=== PATIENT | female | born 1975 | race Caucasian/White ===

== ENCOUNTER 2016-12-03 11:37 | Outpatient (CLI) | payer OTHER | END 2016-12-03 11:38 | disposition home or self-care (01) | DX: M54.2 Cervicalgia (principal); M79.7 Fibromyalgia; M54.6 Pain in thoracic spine; M54.5 Low back pain ==

== ENCOUNTER 2017-07-26 13:58 | Outpatient (CLI) | payer OTHER | END 2017-07-26 13:59 | disposition home or self-care (01) | LOC: DI 13:58 | PROVIDERS: ATTEND Physician Assistant Medical | DX: I34.1 Nonrheumatic mitral (valve) prolapse (principal) | CPT/HCPCS: 93306 ==

== ENCOUNTER 2017-08-07 12:01 | Outpatient (CLI) | payer OTHER ==
--- NOTE | 2017-08-07 13:50 | Ultrasound Report ---
EXAM: ULTRASOUND OF THE LEFT ARM: 08/07/2017 CLINICAL INDICATION: Palpable abnormalities left elbow and left forearm. TECHNIQUE: Real-time scanning was performed with development representative static images obtained. FINDINGS: Ultrasound of the palpable abnormalities identified by the patient was performed. At the level of the elbow, there is an 1.8 x 1.6 x 0.7 cm lipoma. In the left forearm, there is a 2.2 x 2.1 x 0.6 cm lipoma, and an 1.9 x 1.4 x 0.7 cm lipoma. No sonographically suspicious findings are appreciated. IMPRESSION: MULTIPLE LIPOMAS, CORRELATING WITH THE PALPABLE ABNORMALITIES. MD HARSH Allison/BIANCA TD: 08/07/2017 13:50 MTDD
== END 2017-08-07 12:02 | disposition home or self-care (01) ==
LOC: DI 12:01
PROVIDERS: ATTEND Physician Assistant Medical
DX: D17.22 Benign lipomatous neoplasm of skin and subcutaneous tissue of left arm (principal)
CPT/HCPCS: 76882

== ENCOUNTER 2017-10-07 11:25 | Outpatient (CLI) | payer OTHER ==
[2017-10-07 18:57] LABS: BASOPHILS % (AUTO) 0.8 %; EOSINOPHILS # (AUTO) 0.1 10^3/uL (0.0-0.7); EOSINOPHILS % (AUTO) 1.7 %; HGB - HEMOGLOBIN 13.2 g/dL (12.0-16.0); LYMPHOCYTES # (AUTO) 1.6 10^3/uL (1.5-3.5); LYMPHOCYTES % (AUTO) 28.4 %; MEAN CORPUSCULAR HEMOGLOBIN 28.7 pg (27.0-31.0); MEAN CORPUSCULAR HGB CONC 32.9 g/dL (32.0-36.0); MEAN CORPUSCULAR VOLUME 87.1 fL (81.0-99.0); MEAN PLATELET VOLUME 9.3 fL (7.9-10.8); MONOCYTES # (AUTO) 0.3 10^3/uL (0.0-1.0); MONOCYTES % (AUTO) 5.5 %; NEUTROPHILS # (AUTO) 3.6 10^3/uL (1.5-6.6); NEUTROPHILS % (AUTO) 63.6 %; PLT - PLATELET COUNT 231 10^3/uL (130-450); RED BLOOD COUNT 4.59 10^6/uL (4.20-5.40); RED CELL DISTRIBUTION WIDTH 13.7 % (12.0-15.0); WHITE BLOOD COUNT 5.6 x10^3/uL (4.8-10.8)
[2017-10-07 19:23] LABS: THYROID STIMULATING HORMONE 6.86 uIU/mL (0.34-5.60)
[2017-10-07 19:32] LABS: ALBUMIN 4.3 g/dL (3.2-5.5); ALBUMIN/GLOBULIN RATIO 1.3 (1.0-2.2); ALKALINE PHOSPHATASE 53 IU/L (42-121); ALT ALANINE AMINOTRANSFERASE 35 IU/L (10-60); AMYLASE 27 U/L (28-100); AST ASPARTATE AMINOTRANSFERASE 24 IU/L (10-42); BILIRUBIN,TOTAL 0.7 mg/dL (0.2-1.0); BUN - BLOOD UREA NITROGEN 10 mg/dL (6-20); CARBON DIOXIDE - CO2 27 mmol/L (21-32); CHLORIDE 100 mmol/L (101-111); CHOL/HDL RATIO 4.3 (<4.4); CHOLESTEROL 205 mg/dL; CREATININE 0.8 mg/dL (0.4-1.0); GFR - MDRD 78 (>89); GLUCOSE 84 mg/dL (70-100); HDL CHOLESTEROL 48 mg/dL; LDL CHOLESTEROL,CALCULATED 144 mg/dL; SODIUM 136 mmol/L (135-145); TOTAL PROTEIN 7.5 g/dL (6.7-8.2); VLDL CHOLESTEROL 13 mg/dL
[2017-10-07 21:13] LABS: LIPASE < 10 U/L (22-51)
[2017-10-07 21:49] LABS: FREE T4 (FREE THYROXINE) 0.85 ng/dL (0.58-1.64)
== END 2017-10-07 11:26 | disposition home or self-care (01) ==
LOC: LAB.WCP 11:25
PROVIDERS: ATTEND Physician Assistant Medical
DX: Z00.00 Encounter for general adult medical examination without abnormal findings (principal); R10.9 Unspecified abdominal pain
CPT/HCPCS: 36415; 80053; 80061; 82150; 83690; 83721; 84439; 84443; 85025

== ENCOUNTER 2017-10-30 11:40 | Emergency (ER) | payer OTHER ==
[2017-10-30 12:49] LABS: BASOPHILS # (AUTO) 0.1 10^3/uL (0.0-0.1); EOSINOPHILS # (AUTO) 0.1 10^3/uL (0.0-0.7); EOSINOPHILS % (AUTO) 1.1 %; HGB - HEMOGLOBIN 13.9 g/dL (12.0-16.0); LYMPHOCYTES # (AUTO) 1.7 10^3/uL (1.5-3.5); LYMPHOCYTES % (AUTO) 27.3 %; MEAN CORPUSCULAR HEMOGLOBIN 29.2 pg (27.0-31.0); MEAN CORPUSCULAR VOLUME 86.1 fL (81.0-99.0); MEAN PLATELET VOLUME 8.6 fL (7.9-10.8); MONOCYTES # (AUTO) 0.4 10^3/uL (0.0-1.0); MONOCYTES % (AUTO) 6.7 %; NEUTROPHILS # (AUTO) 3.9 10^3/uL (1.5-6.6); NEUTROPHILS % (AUTO) 63.9 %; PLT - PLATELET COUNT 256 10^3/uL (130-450); RED BLOOD COUNT 4.75 10^6/uL (4.20-5.40); RED CELL DISTRIBUTION WIDTH 13.5 % (12.0-15.0); WHITE BLOOD COUNT 6.1 x10^3/uL (4.8-10.8)
[2017-10-30 13:01] LABS: ALBUMIN 4.5 g/dL (3.2-5.5); ALBUMIN/GLOBULIN RATIO 1.2 (1.0-2.2); BILIRUBIN,TOTAL 0.6 mg/dL (0.2-1.0); CALCIUM 9.4 mg/dL (8.5-10.3); CREATININE 0.8 mg/dL (0.4-1.0); TOTAL PROTEIN 8.3 g/dL (6.7-8.2)
[2017-10-30 13:12] LABS: BILIRUBIN,URINE NEGATIVE (NEGATIVE); CLARITY,URINE CLEAR (CLEAR); GLUCOSE, URINE (UA) NEGATIVE (NEGATIVE); KETONES,URINE (UA) TRACE mg/dL (NEGATIVE); LEUKOCYTE ESTERASE, URINE NEGATIVE (NEGATIVE); NITRITE,URINE NEGATIVE (NEGATIVE); OCCULT BLOOD,URINE NEGATIVE (NEGATIVE); PROTEIN,URINE NEGATIVE (NEGATIVE); UROBILINOGEN,URINE 0.2 (NORMAL) E.U./dL (NORMAL)
--- NOTE | 2017-10-30 13:43 | ED Physician Documentation ---
PD HPI ABD PAIN - Stated complaint Stated Complaint: FEMALE /BLEEDING - Chief complaint Chief Complaint: Abd Pain - History obtained from History obtained from: Patient - History of Present Illness Timing - onset: Other (She had chronic constipation and had a colonoscopy in her teenage years and also had one again for some stomach upsets about 4 years ago which did show diverticula. Last week she had painless rectal bleeding which then stopped for a few days and then started again. It is with the bowel movements. She has not constipated. She does have a little bit of stomach upset. No vomiting.) Review of Systems Constitutional: denies: Fever, Chills, Fatigue, Weight Loss, Sweats GI: reports: Abdominal Pain. 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 09/29/13 08/22/14 Amitriptyline [Elavil] 25 mg PO BID 11/06/13 08/22/14 Fluoxetine HCl [Prozac] 20 mg PO 11/06/13 08/22/14 traMADol [Ultram] 100 mg PO ONCE 11/06/13 08/22/14 traMADol [Ultram] 50 - 100 mg PO Q6H PRN #20 tablet 08/23/14 - Allergies Allergies/Adverse Reactions: Allergies Allergy/AdvReac Type Severity Reaction Status Date / Time bee stings Allergy Respiratory Uncoded 08/22/14 23:18 - Social History Does the pt smoke?: No Smoking Status: Never smoker Does the pt drink ETOH?: No Does the pt have substance abuse?: No - Immunizations Immunizations are current?: Yes - POLST Patient has POLST: No PD ED PE NORMAL - Vitals Vital signs reviewed: Yes - General General: Alert and oriented X 3, No acute distress - Abdomen Abdomen: Normal bowel sounds, Soft, Non tender - Rectal Rectal: Other (With Cheryl LANDEROS present in chaperoning, brown guaiac negative stool, QC passed.) - Derm Derm: Normal color, Warm and dry - Neuro Neuro: Alert and oriented X 3, Normal speech Results - Vitals Vitals: Vital Signs - 24 hr 10/30/17 10/30/17 10/30/17 11:45 13:50 13:51 Temperature 36.5 C 36.4 C L Heart Rate 82 82 Respiratory 18 14 Rate Blood Pressure 110/70 108/67 O2 Saturation 100 100 Oxygen O2 Source Room air - Labs Labs: Laboratory Tests 10/30/17 10/30/17 10/30/17 12:44 12:44 12:58 WBC 6.1 RBC 4.75 Hgb 13.9 Hct 40.9 MCV 86.1 MCH 29.2 MCHC 34.0 RDW 13.5 Plt Count 256 MPV 8.6 Neut # 3.9 Lymph # 1.7 Kenton # 0.4 Eos # 0.1 Baso # 0.1 Absolute Nucleated RBC 0.00 Nucleated RBC % 0.0 Sodium 137 Potassium 3.2 L Chloride 100 L Carbon Dioxide 27 Anion Gap 10.0 BUN 14 Creatinine 0.8 Estimated GFR (MDRD) 78 L Glucose 91 Calcium 9.4 Total Bilirubin 0.6 AST 24 ALT 30 Alkaline Phosphatase 54 Total Protein 8.3 H Albumin 4.5 Globulin 3.8 Albumin/Globulin Ratio 1.2 Lipase 16 L Urine Color YELLOW Urine Clarity CLEAR Urine pH 6.0 Ur Specific Drummond 1.025 Urine Protein NEGATIVE Urine Glucose (UA) NEGATIVE Urine Ketones TRACE Urine Occult Blood NEGATIVE Urine Nitrite NEGATIVE Urine Bilirubin NEGATIVE Urine Urobilinogen 0.2 (NORMAL) Ur Leukocyte Esterase NEGATIVE Ur Microscopic Review NOT INDICATED Urine Culture Comments NOT INDICATED PD MEDICAL DECISION MAKING - ED course ED course: Intermittent bleeding from the colon it sounds like. That said she is guaiac negative here in her H&H is reassuring. Results from prior colonoscopy reviewed , could be a diverticular bleed. Follow-up for repeat colonoscopy was advised. Departure - Departure Disposition: 01 Home, Self Care Clinical Impression: Lower GI bleed Condition: Good Record reviewed to determine appropriate education?: Yes Instructions: ED Hematochezia Stable Comments: Your blood counts are normal and as of this moment she do not have any blood in your stool. Follow-up with Dr. Rivera and discuss repeat colonoscopy referral. Return if worse. Discharge Date/Time: 10/30/17 13:51
[2017-10-30 13:51] VITALS: BP 108/67
== END 2017-10-30 13:51 | disposition home or self-care (01) ==
LOC: ED 11:40
DX: K62.5 Hemorrhage of anus and rectum (principal); Z86.010 Personal history of colon polyps; M79.7 Fibromyalgia; F32.9 Major depressive disorder, single episode, unspecified
CPT/HCPCS: 36415; 80053; 81001; 81003; 83690; 85025; 87086; 99283; 99284

== ENCOUNTER 2017-10-31 13:46 | Outpatient (CLI) | payer OTHER ==
--- NOTE | 2017-10-31 18:24 | MRI Report ---
EXAM: MRI THORACIC SPINE WITHOUT CONTRAST EXAM DATE: 10/31/2017 02:57 PM. CLINICAL HISTORY: Back pain, thoracic region, chronic. COMPARISONS: Thoracic spine radiographs 12/03/2016. TECHNIQUE: Multiplanar, multisequence T1-weighted and fluid-sensitive sequences of the thoracic spine from C7 to L1 without contrast. Other: None. FINDINGS: No suspicious marrow replacement is present in the thoracic vertebral bodies. No abnormal T2 signal is seen in the thoracic spinal cord. Vertebral body height is preserved throughout the thoracic spine. No significant spondylolisthesis is seen in the thoracic spine. Minimal posterior disk protrusions are present from T4-T10. Anterior osteophyte formation is seen sca ttered throughout the mid and lower thoracic spine. This is seen on the comparison radiographs No central canal or foraminal stenosis is present in the thoracic spine. Minimal posterior disk protrusions are seen from C5-T1. No epidural fluid collection is present. There is a complex lesion along the posterior aspect of the left thyroid lobe which measures up to 1. 7 cm in size. A portion of this is T1 hyperintense and a portion is T2 hyperintense. IMPRESSION: 1. Minimal posterior disk protrusions are seen in the mid and lower thoracic spine. 2. No central canal or foraminal stenosis is present in the thoracic spine. 3. No abnormal signal is seen in the thoracic spinal cord. 4. Minimal posterior disk protrusions are seen in the lower cervical spine. 5. There is a complex mass along the posterior aspect of the left thyroid lobe. Thyroid ultrasound wo uld be of value to further assess this finding. MRI cannot distinguish benign from malignant thyroid disease. A parathyroid lesion is in the differential as well. [facility] Referring Provider Line: [phone] SITE ID: [id number]
== END 2017-10-31 13:47 | disposition home or self-care (01) ==
LOC: DI 13:46
PROVIDERS: ATTEND Family Medicine
DX: M51.24 Other intervertebral disc displacement, thoracic region (principal); M50.23 Other cervical disc displacement, cervicothoracic region; E07.9 Disorder of thyroid, unspecified; E21.5 Disorder of parathyroid gland, unspecified
CPT/HCPCS: 72146

== ENCOUNTER 2017-11-16 12:55 | Outpatient (CLI) | payer OTHER ==
--- NOTE | 2017-11-16 20:53 | Ultrasound Report ---
EXAM: THYROID ULTRASOUND EXAM DATE: 11/16/2017 02:40 PM. CLINICAL HISTORY: Thyroid nodule COMPARISON: None. TECHNIQUE: Real time sonographic imaging of the thyroid was performed by the spice cleaner. Multiple re presentative static images were saved for review. FINDINGS: THYROID GLAND: Right Lobe: Surgically absent. No soft tissue nodular mass in the resection bed. Left Lobe: 5.5 x 2.1 x 2.2 cm, volume 13.2 cc. Normal background echotexture. Left Lobe Nodules: 1. Partially cystic nodule with no suspicious features, midportion, 2.0 x 1.6 x 1.8 cm, previously 1. 8 x 1.3 x 1.3 cm. BETH very low suspicion sonographic pattern. 2. Partially cystic with eccentric solid area, inferior pole, 0.8 x 0.6 x 0.7 cm, previously 0.6 x 0. 4 x 0.4 cm. BETH low suspicion sonographic pattern. Isthmus: Surgically absent. LYMPH NODES: No adenopathy demonstrated in the central or lateral compartment. OTHER: None. IMPRESSION: 1. Post-right thyroidectomy. 2. Slight interval increase in size of two left thyroid nodules. The larger 2.0 cm nodule borderline meets criteria for tissue sampling with FNA. Management recommendations are based on 2015 [place] [employer] Management Guidelines for A dult Patients with Thyroid Nodules and Differentiated Thyroid Cancer. [facility] Referring Provider Line: [phone] SITE ID: [id number]
== END 2017-11-16 12:56 | disposition home or self-care (01) ==
LOC: DI 12:55
PROVIDERS: ATTEND Family Medicine
DX: E04.2 Nontoxic multinodular goiter (principal); E89.0 Postprocedural hypothyroidism
CPT/HCPCS: 76536

== ENCOUNTER 2017-12-23 09:16 | Outpatient (CLI) | payer OTHER ==
[2017-12-23 10:55] VITALS: BP 117/75
[2017-12-23] MEDS ORDERED: BUFFERED LIDOCAINE 10 ML SYRINGE IU ONE (11:10)
--- NOTE | 2017-12-23 12:21 | Ultrasound Report ---
ULTRASOUND-GUIDED FINE NEEDLE ASPIRATION OF LEFT THYROID NODULE: 12/23/2017 CLINICAL INDICATION: Left thyroid nodule. TECHNIQUE/FINDINGS: Following obtaining informed consent, the patient's left neck was prepped and draped in the usual sterile fashion. The skin and soft tissues were anesthetized with lidocaine. Under ultrasound guidance, four 22-gauge fine needle aspirations were performed. Needle washings were submitted to Pathology. The patient tolerated the procedure well. No immediate complications. IMPRESSION: FINE NEEDLE ASPIRATION OF LEFT THYROID NODULE. PATHOLOGY REPORT PENDING. TD: 12/23/2017 12:20
== END 2017-12-23 09:17 | disposition home or self-care (01) ==
LOC: DI 09:16
PROVIDERS: ATTEND Surgery
DX: E04.1 Nontoxic single thyroid nodule (principal); M79.7 Fibromyalgia; I49.9 Cardiac arrhythmia, unspecified; I10 Essential (primary) hypertension
CPT/HCPCS: 10022; 76942; 88305; 88373

== ENCOUNTER 2018-03-13 15:09 | Outpatient (CLI) | payer OTHER ==
[2018-03-13 19:03] LABS: BASOPHILS % (AUTO) 0.6 %; EOSINOPHILS # (AUTO) 0.1 10^3/uL (0.0-0.7); EOSINOPHILS % (AUTO) 1.3 %; HGB - HEMOGLOBIN 12.8 g/dL (12.0-16.0); LYMPHOCYTES # (AUTO) 1.8 10^3/uL (1.5-3.5); LYMPHOCYTES % (AUTO) 25.7 %; MEAN CORPUSCULAR HEMOGLOBIN 28.6 pg (27.0-31.0); MEAN CORPUSCULAR HGB CONC 33.5 g/dL (32.0-36.0); MEAN CORPUSCULAR VOLUME 85.4 fL (81.0-99.0); MEAN PLATELET VOLUME 9.3 fL (7.9-10.8); MONOCYTES # (AUTO) 0.4 10^3/uL (0.0-1.0); MONOCYTES % (AUTO) 5.4 %; NEUTROPHILS # (AUTO) 4.6 10^3/uL (1.5-6.6); PLT - PLATELET COUNT 256 10^3/uL (130-450); RED BLOOD COUNT 4.47 10^6/uL (4.20-5.40); RED CELL DISTRIBUTION WIDTH 14.1 % (12.0-15.0); WHITE BLOOD COUNT 6.9 x10^3/uL (4.8-10.8)
[2018-03-13 19:19] LABS: ALBUMIN 3.8 g/dL (3.2-5.5); ALBUMIN/GLOBULIN RATIO 1.1 (1.0-2.2); BILIRUBIN,TOTAL 0.6 mg/dL (0.2-1.0); CALCIUM 8.8 mg/dL (8.5-10.3); CREATININE 0.7 mg/dL (0.4-1.0); TOTAL PROTEIN 7.3 g/dL (6.7-8.2)
== END 2018-03-13 15:10 | disposition home or self-care (01) ==
LOC: LAB.WCP 15:09
PROVIDERS: ATTEND Family Medicine
DX: K62.5 Hemorrhage of anus and rectum (principal)
CPT/HCPCS: 36415; 80053; 85025

== ENCOUNTER 2018-03-24 14:40 | Outpatient (CLI) | payer OTHER ==
--- NOTE | 2018-03-25 22:09 | MRI Report ---
Procedure Date: 03/24/2018 Accession Number: [id number] / [id number] Procedure: MRI - Lumbar Spine W/O CPT Code: FULL RESULT: EXAM: MRI LUMBAR SPINE WITHOUT CONTRAST. EXAM DATE: 03/24/2018 03:12 PM. CLINICAL HISTORY: Low back pain, acute. COMPARISON: None. TECHNIQUE: Multiplanar, multisequence T1-weighted and fluid-sensitive sequences of the lumbar spine from T12 to S1 without contrast. Other: None. FINDINGS: There is mild straightening of the normal lumbar lordosis. The conus terminates at T12-L1 and is normal. There is mild desiccation of the disk spaces at L4-L5 and L5-S1. There is no significant atrophy of the paraspinal musculature or the psoas musculature. The abdominal aorta is of normal caliber. The kidneys are without evidence of hydronephrosis. There is fluid intensity within the superficial space of the lower back. L1-L2: There is a minimal disk bulge abutting the sac producing a minimal central canal stenosis. The remainder of the level is normal. L2-L3: There is no significant disk bulge, central or foraminal stenosis. The facets are normal. L3-L4: There is no significant disk bulge, central or foraminal stenosis. The facets are normal. L4-L5: There is no significant disk bulge, central or foraminal stenosis. The facets are normal. L5-S1: There is a minimal disk osteophyte complex without significant central canal stenosis. The remainder of the level is normal. There are small perineural cysts posterior to S2 and S3. IMPRESSION: 1. There is a minimal disk osteophyte complex at L5-S1 but without significant central canal stenosis. 2. There is a minimal disk bulge at L1-L2 producing a minimal central canal stenosis. Comment: The following findings are so common in adults without low back pain that while we report their presence, they must be interpreted with caution and in the context of the clinical situation. (Reference Chuyk et al, Spine 2001) Prevalence of findings in patients without low back pain: Disk degeneration (any evidence): 92% Disk desiccation/T2 signal loss: 83% Disk height loss: 56% Disk bulge: 64% Disk protrusion: 32% Annular tear/high intensity zone: 38% [facility]
== END 2018-03-24 14:41 | disposition home or self-care (01) ==
LOC: DI 14:40
PROVIDERS: ATTEND Family Medicine
DX: M54.5 Low back pain (principal)
CPT/HCPCS: 72148

== ENCOUNTER 2018-08-02 16:11 | Emergency (ER) | payer OTHER ==
--- NOTE | 2018-08-02 16:37 | ED Physician Documentation ---
PD HPI LOWER EXT INJURY - Stated complaint Stated Complaint: LT ANKLE INJ - Chief complaint Chief Complaint: Trauma Ext - History obtained from History obtained from: Patient, Family - History of Present Illness PD HPI LOW EXT INJURY LOCATION: Left, Ankle Type of injury: Twist Where injury occurred: Other (store) Timing - onset: Today Timing - duration: Minutes Timing - details: Abrupt onset, Still present Improved by: Rest, Ice, Immobilization Worsened by: Moving, Palpating Associated symptoms: Swelling. No: Weakness, Numbness, Tingling Contributing factors: No: Anticoagulated Similar symptoms before: Diagnosis (ankle sprain) Recently seen: Not recently seen - Additional information Additional information: 42-year-old female was walking into [employer] with her cart she missed judged the curb and twisted her ankle stepping down. She has swelling and tenderness to the left ankle laterally and into the arch. Review of Systems Constitutional: denies: Fever Eyes: denies: Decreased vision Respiratory: denies: Cough GI: denies: Vomiting Skin: denies: Rash Musculoskeletal: reports: Extremity pain, Joint pain, Extremity swelling, Joint swelling, Pain with weight bearing. 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 09/29/13 08/22/14 Amitriptyline [Elavil] 25 mg PO BID 11/06/13 08/22/14 traMADol [Ultram] 100 mg PO ONCE 11/06/13 08/22/14 DULoxetine [Cymbalta] 08/02/18 08/02/18 - Allergies Allergies/Adverse Reactions: Allergies Allergy/AdvReac Type Severity Reaction Status Date / Time bee stings Allergy Respiratory Uncoded 08/02/18 16:22 - Social History Does the pt smoke?: No Smoking Status: Never smoker Does the pt drink ETOH?: No Does the pt have substance abuse?: No - Immunizations Immunizations are current?: Yes - POLST Patient has POLST: No PD ED PE NORMAL - Vitals Vital signs reviewed: Yes (tachy and hypertensive ) - General General: Alert and oriented X 3, No acute distress, Well developed/nourished - HEENT HEENT: Atraumatic, PERRL, EOMI - Respiratory Respiratory: No respiratory distress - Derm Derm: Normal color, Warm and dry, No rash - Extremities Extremities: Other (There is point tenderness and swelling to the talofibular ligament and no tenderness to the proximal 5th. Distal n/v is intact. 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, No motor deficit, No sensory deficit, Normal speech Eye Opening: Spontaneous Motor: Obeys Commands Verbal: Oriented GCS Score: 15 - Psych Psych: Normal mood, Normal affect Results - Vitals Vitals: Vital Signs - 24 hr 08/02/18 16:21 Temperature 36.9 C Heart Rate 118 H Respiratory 17 Rate Blood Pressure 134/94 H O2 Saturation 98 Oxygen O2 Source Room air - Rads (name of study) ankle L Radiology: Prelim report reviewed (Impression: Normal ankle radiography.), EMP read indepedently, See rad report Procedures - Splint (location) left ankle Splint applied by: Physician Type of splint: Ankle airsplint Other: Patient tolerated well, No complications, Neurovascular intact, Good alignment, Crutches provided PD MEDICAL DECISION MAKING - ED course Complexity details: reviewed results, re-evaluated patient, considered differential, d/w patient, d/w family ED course: 42 y/o female with an ankle sprain is placed into an air cast and on crutches. Departure - Departure Disposition: 01 Home, Self Care Clinical Impression: Ankle sprain Qualifiers: Encounter type: initial encounter Involved ligament of ankle: calcaneofibular ligament Laterality: left Qualified Code(s): S93.412A - Sprain of calcaneofibular ligament of left ankle, initial encounter Condition: Stable Instructions: ED Sprain Ankle W X Ray Follow-Up: Jalen Rivera DO [Primary Care Provider] -
--- NOTE | 2018-08-02 17:07 | XRAY Report ---
Reason: twisted ankle stepping down. Procedure Date: 08/02/2018 Accession Number: [id number] / [id number] Procedure: XR - Ankle 3 View LT CPT Code: FULL RESULT: EXAM: LEFT ANKLE RADIOGRAPHY EXAM DATE: 08/02/2018 04:46 PM. CLINICAL HISTORY: Twisted ankle stepping down. COMPARISON: None. TECHNIQUE: 3 views. FINDINGS: Bones: Normal. No fractures or bone lesions. Joints: Normal. No effusion. No subluxations. The ankle mortise is normally aligned. Soft Tissues: Normal. No soft tissue swelling. IMPRESSION: Normal ankle radiography. [facility]
[2018-08-02 17:16] VITALS: BP 133/84
== END 2018-08-02 17:14 | disposition home or self-care (01) ==
LOC: ED 16:11
DX: S93.412A Sprain of calcaneofibular ligament of left ankle, initial encounter (principal); X50.1XXA Overexertion from prolonged static or awkward postures, initial encounter; Y93.89 Activity, other specified; Y92.512 Supermarket, store or market as the place of occurrence of the external cause; I10 Essential (primary) hypertension
CPT/HCPCS: 99283

== ENCOUNTER 2018-09-14 08:13 | Outpatient (CLI) | payer OTHER ==
--- NOTE | 2018-09-14 22:01 | Ultrasound Report ---
Reason: ABDOMINAL MASS,SOFT TISSUE MASS Procedure Date: 09/14/2018 Accession Number: [id number] / [id number] Procedure: US - Chest CPT Code: FULL RESULT: EXAM: ABDOMEN ULTRASOUND LIMITED. EXAM DATE: 09/14/2018 08:22 AM. CLINICAL HISTORY: Left upper quadrant abdominal mass. COMPARISON: Ext limited non-vascular 08/07/2017 12:13 PM. TECHNIQUE: Real-time scanning was performed with static images obtained. FINDINGS: In the left upper quadrant of the abdomen, there is a circumscribed echogenic subcutaneous soft tissue avascular mass measuring 2 x 1.6 x 2.4 cm. No obvious hernia or collection is identified. No adenopathy. IMPRESSION: Left upper abdominal wall mass corresponds to a 2.4 cm probable lipoma. If mass continues to increase in size or become painful, recommend MRI with and without contrast. [facility]
--- NOTE | 2018-09-14 22:01 | Ultrasound Report ---
Reason: ABDOMINAL MASS,SOFT TISSUE MASS Procedure Date: 09/14/2018 Accession Number: [id number] / [id number] Procedure: US - Ext Limited Non Vascular CPT Code: FULL RESULT: EXAM: LEFT UPPER EXTREMITY ULTRASOUND - LIMITED EXAM DATE: 09/14/2018 08:25 AM. CLINICAL HISTORY: Abdominal mass, soft tissue mass. COMPARISON: Extremity limited nonvascular 08/07/2017 12:13 PM. TECHNIQUE: Real-time scanning was performed with static images obtained. FINDINGS: Targeted evaluation of the posterior left upper arm was performed. In the area of clinical concern, there are 3 circumscribed echogenic, avascular soft tissue nodules in the left upper arm measuring 1.7 x 0.5 x 0.5 cm in the proximal upper arm, 0.5 x 0.4 x 0.4 cm in the mid left upper arm and 1.2 x 0.5 x 1 cm in the distal left upper arm. No collections or adenopathy. IMPRESSION: 1. At least 3 echogenic circumscribed avascular nodules within the subcutaneous soft tissues most compatible with lipomas. 2. No additional masses, adenopathy or collection. 3. If masses continue to increase in size, recommend MRI with and without contrast. [facility]
== END 2018-09-14 08:14 | disposition home or self-care (01) ==
LOC: DI 08:13
PROVIDERS: ATTEND Nurse Practitioner
DX: D17.22 Benign lipomatous neoplasm of skin and subcutaneous tissue of left arm (principal); R19.02 Left upper quadrant abdominal swelling, mass and lump
CPT/HCPCS: 76604; 76882

== ENCOUNTER 2018-12-23 11:59 | Outpatient (CLI) | payer OTHER ==
[2018-12-23 18:41] LABS: BASOPHILS # (AUTO) 0.1 10^3/uL (0.0-0.1); BASOPHILS % (AUTO) 1.1 %; EOSINOPHILS # (AUTO) 0.3 10^3/uL (0.0-0.7); EOSINOPHILS % (AUTO) 5.5 %; HGB - HEMOGLOBIN 13.4 g/dL (12.0-16.0); LYMPHOCYTES # (AUTO) 1.6 10^3/uL (1.5-3.5); LYMPHOCYTES % (AUTO) 32.5 %; MEAN CORPUSCULAR HEMOGLOBIN 28.5 pg (27.0-31.0); MEAN CORPUSCULAR VOLUME 86.5 fL (81.0-99.0); MEAN PLATELET VOLUME 9.6 fL (7.9-10.8); MONOCYTES # (AUTO) 0.3 10^3/uL (0.0-1.0); MONOCYTES % (AUTO) 6.7 %; NEUTROPHILS # (AUTO) 2.6 10^3/uL (1.5-6.6); NEUTROPHILS % (AUTO) 54.2 %; PLT - PLATELET COUNT 237 10^3/uL (130-450); RED BLOOD COUNT 4.68 10^6/uL (4.20-5.40); RED CELL DISTRIBUTION WIDTH 13.5 % (12.0-15.0); WHITE BLOOD COUNT 4.8 x10^3/uL (4.8-10.8)
[2018-12-23 19:02] LABS: ALBUMIN 4.1 g/dL (3.2-5.5); ALBUMIN/GLOBULIN RATIO 1.4 (1.0-2.2); BILIRUBIN,TOTAL 0.5 mg/dL (0.2-1.0); CALCIUM 9.2 mg/dL (8.5-10.3); CREATININE 0.9 mg/dL (0.4-1.0); TOTAL PROTEIN 7.1 g/dL (6.7-8.2)
== END 2018-12-23 12:00 | disposition home or self-care (01) ==
LOC: LAB.WCP 11:59
PROVIDERS: ATTEND Family Medicine
DX: I10 Essential (primary) hypertension (principal); E03.9 Hypothyroidism, unspecified
CPT/HCPCS: 36415; 80053; 84443; 85025

== ENCOUNTER 2019-02-13 09:37 | Emergency (ER) | payer OTHER ==
--- NOTE | 2019-02-13 09:49 | ED Physician Documentation ---
History of Present Illness - Stated complaint Stated Complaint: LT ANKLE INJURY - History obtained from History obtained from: Patient - History of Present Illness Timing: Prior to arrival - Additonal information Additional information: Patient is a previously healthy 43-year-old female presenting with left ankle lower leg pain after accidentally rolling it earlier this morning. Patient denies fall or other trauma. Patient everted her left ankle and now has lateral malleoli pain and swelling. Patient denies new strength, range of motion, or sensation change to lower extremity. No other injuries. No other improving or worsening factors. 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 HEENT: Tonsil/Adenoidectomy - Present Medications Home Medications: Ambulatory Orders Medication Instructions Recorded Confirmed DULoxetine [Cymbalta] 08/02/18 08/02/18 - Allergies Allergies/Adverse Reactions: Allergies Allergy/AdvReac Type Severity Reaction Status Date / Time nickel Allergy Itching Verified 02/13/19 09:50 bee stings Allergy Respiratory Uncoded 02/13/19 09:50 - Social History Does the pt smoke?: No Smoking Status: Never smoker Does the pt drink ETOH?: No Does the pt have substance abuse?: No - Immunizations Immunizations are current?: Yes - POLST Patient has POLST: No PD ED PE NORMAL - Vitals Vital signs reviewed: Yes - General General: Alert and oriented X 3, No acute distress, Well developed/nourished - HEENT HEENT: Atraumatic, Moist mucous membranes - Cardiac Cardiac: Strong equal pulses (Cap refill brisk) - Respiratory Respiratory: No respiratory distress - Derm Derm: Normal color, Warm and dry, No rash - Extremities Extremities: No deformity. No: No tenderness to palpate (Tenderness to left lateral malleoli with swelling) - Neuro Neuro: Alert and oriented X 3, No motor deficit, No sensory deficit - Psych Psych: Normal mood, Normal affect Results - Vitals Vitals: Vital Signs - 24 hr 02/13/19 09:47 Temperature 36.6 C Heart Rate 86 Respiratory 16 Rate Blood Pressure 134/84 H O2 Saturation 99 Oxygen O2 Source Room air PD MEDICAL DECISION MAKING - ED course Complexity details: reviewed results, re-evaluated patient, considered differential, d/w patient ED course: Feel the patient is presenting with likely ankle sprain and have lower suspicion for dislocation or fracture. Obtained plain films which also did not find evidence of fracture, dislocation, or other acute finding. Given traumatic nature also have low suspicion for gout, infection, DVT, or other pathology. Advised patient of results and recommendations including supportive cares, return precautions, appropriate follow-up. Patient voiced understanding and is comfortable with discharge plan. Departure - Departure Disposition: 01 Home, Self Care Clinical Impression: Ankle sprain Qualifiers: Encounter type: initial encounter Involved ligament of ankle: unspecified ligament Laterality: left Qualified Code(s): S93.402A - Sprain of unspecified ligament of left ankle, initial encounter Condition: Good Instructions: ED Sprain Ankle Follow-Up: Jalen Rivera DO [Primary Care Provider] - Within 3 Days Comments: Ice, elevation, and ibuprofen/Tylenol as needed. May also use [id number] bracing or Roderick bandaging to help with stability and compression. Please follow- up with primary care physician in next 2 to 3 days return to ED sooner if expands worsening symptoms or other concerns.
[2019-02-13 09:51] VITALS: BP 134/84
--- NOTE | 2019-02-13 11:24 | XRAY Report ---
Reason: pain after rolling ankle Procedure Date: 02/13/2019 Accession Number: [id number] / [id number] Procedure: XR - Tib/Fib LT CPT Code: FULL RESULT: EXAM: LEFT TIBIA/FIBULA RADIOGRAPHY EXAM DATE: 02/13/2019 10:38 AM. CLINICAL HISTORY: Pain after rolling ankle. COMPARISON: ANKLE 3 VIEW LT 02/13/2019 10:21 AM ANKLE 3 VIEW LT 08/02/2018 4:40 PM. TECHNIQUE: 2 views. FINDINGS: Bones: No fracture or bone lesion. Joints: The visualized knee and ankle joints are normal. Soft Tissues: Mild soft tissue swelling about the ankle. IMPRESSION: No fracture or subluxation. [facility]
--- NOTE | 2019-02-13 11:25 | XRAY Report ---
Reason: pain, swelling after injury, unable to ambulate. Procedure Date: 02/13/2019 Accession Number: [id number] / [id number] Procedure: XR - Ankle 3 View LT CPT Code: FULL RESULT: EXAM: LEFT ANKLE RADIOGRAPHY EXAM DATE: 02/13/2019 10:38 AM. CLINICAL HISTORY: Pain, swelling after injury, unable to ambulate. COMPARISON: ANKLE 3 VIEW LT 08/02/2018 4:40 PM. TECHNIQUE: 3 views. FINDINGS: Bones: Stable examination. No fracture or bone lesions. Joints: No effusion. No subluxations. The ankle mortise is normally aligned. Soft Tissues: Mild soft tissue swelling. IMPRESSION: Mild soft tissue swelling. No fracture or subluxation. [facility]
== END 2019-02-13 12:27 | disposition home or self-care (01) ==
LOC: ED 09:37
DX: S93.402A Sprain of unspecified ligament of left ankle, initial encounter (principal); X50.1XXA Overexertion from prolonged static or awkward postures, initial encounter; I10 Essential (primary) hypertension
CPT/HCPCS: 99282; 99283

== ENCOUNTER 2019-06-14 11:52 | Emergency (ER) | payer OTHER ==
--- NOTE | 2019-06-14 13:12 | ED Physician Documentation ---
<Magdy Correa - Last Filed: 06/14/19 13:27> PD HPI BACK PAIN - Stated complaint Stated Complaint: MID BACK PX - Chief complaint Chief Complaint: Back Pain - History obtained from History obtained from: Patient - History of Present Illness Timing - onset: How many days ago (3) Timing - duration: Days (3) Timing - details: Gradual onset, Still present Location: Mid Quality: Pain, Spasm, Sharp, Similar to prior episodes Associated symptoms: No: Fever, Weakness, Numbness, Incontinent of urine, Unable to urinate, Hematuria, Incontinent of stool Improves with: Rest Worsened by: Movement, Lifting, Twisting Contributing factors: No: Lifting Similar symptoms before: Diagnosis (T/L disc disease) Recently seen: Not recently seen - Additional information Additional information: 43-year-old female with history of fibromyalgia has developed pain in her mid back that is worse than usual. She has had this pain in her mid back for the past year she is had an MRI done that shows a disc problem at the TL junction. She states that she is uncertain why but over the past several days her pain is much worse she is unable to get comfortable in any position in her bed she has pain when she moves she does not have pain to direct palpation. She has not had a fever with this she has some nausea which she thinks is secondary to the extent of the pain. She states the pain is well localized and in the midportion of her back. She does not have any trouble with breathing. Review of Systems Constitutional: denies: Fever Eyes: denies: Decreased vision Ears: denies: Ear pain Nose: denies: Congestion Throat: denies: Sore throat Cardiac: denies: Chest pain / pressure, Palpitations Respiratory: denies: Dyspnea, Cough GI: denies: Abdominal Pain, Nausea, Vomiting : denies: Dysuria, Frequency Skin: denies: Rash Musculoskeletal: reports: Back pain. denies: Neck pain, Extremity pain Neurologic: denies: Generalized weakness, Focal weakness, Numbness PD PAST MEDICAL HISTORY - Present Medications Home Medications: Ambulatory Orders Medication Instructions Recorded Confirmed DULoxetine [Cymbalta] 08/02/18 08/02/18 Hydrocodone/Acetaminophen 1 - 2 each PO Q6H PRN #14 tablet 06/14/19 [Hydrocodon-Acetaminophen 5-325] - Allergies Allergies/Adverse Reactions: Allergies Allergy/AdvReac Type Severity Reaction Status Date / Time nickel Allergy Itching Verified 06/14/19 11:55 bee stings Allergy Respiratory Uncoded 06/14/19 11:55 PD ED PE NORMAL - Vitals Vital signs reviewed: Yes (hypertensive ) - General General: Alert and oriented X 3, Well developed/nourished, Other (appears to be in pain with mild chair upholsterer tone and flat affect .) - HEENT HEENT: Atraumatic, PERRL, EOMI - Neck Neck: Supple, no meningeal sign, No bony TTP - Cardiac Cardiac: RRR, No murmur - Respiratory Respiratory: No respiratory distress, Clear bilaterally - Abdomen Abdomen: Soft, Non tender - Back Back: No CVA TTP, No spinal TTP, Other (There is no specific point tenderness to the area of pain. There is pain with coughing, movement and twisting. ) - Derm Derm: Normal color, Warm and dry, No rash - Extremities Extremities: No deformity, No edema - Neuro Neuro: Alert and oriented X 3, rn orthopaedics 2-12 intact, No motor deficit, No sensory deficit, Normal speech Eye Opening: Spontaneous Motor: Obeys Commands Verbal: Oriented GCS Score: 15 - Psych Psych: Normal mood, Normal affect PD MEDICAL DECISION MAKING - ED course Complexity details: considered differential, d/w patient, d/w family ED course: 43-year-old female with a history of thoracic disc disease has exacerbation of her symptoms. She is administered dexamethasone 10 mg PO and Toradol 60 mg IM[address] will place her on a short course of narcotic and she has flexeril at home. 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 I have indicated the time course as a week for improvement and consideration for epidural steroid injection for pain not responding to conservative measures. Departure - Departure Disposition: 01 Home, Self Care Clinical Impression: Thoracic disc disease Condition: Stable Instructions: ED Spasm Back No Trauma Follow-Up: Jalen Rivera DO [Primary Care Provider] - Prescriptions: Hydrocodone/Acetaminophen [Hydrocodon-Acetaminophen 5-325] 1 - 2 each PO Q6H PRN #14 tablet PRN Reason: pain Forms: Activity restrictions Discharge Date/Time: 06/14/19 13:59 <Carmita Moore - Last Filed: 06/17/19 01:27> PD PAST MEDICAL HISTORY - Past Medical History Past Medical History: Yes Cardiovascular: Hypertension, Valve disorder Respiratory: None Endocrine/Autoimmune: Other GI: GERD, Colon polyps : None HEENT: None Psych: Depression Musculoskeletal: Fibromyalgia Derm: None - Past Surgical History Past Surgical History: Yes General: Appendectomy, Colonoscopy, EGD /MOLD LAMINATOR: Tubal ligation HEENT: Tonsil/Adenoidectomy - Social History Does the pt smoke?: No Smoking Status: Never smoker Does the pt drink ETOH?: No Does the pt have substance abuse?: No - Immunizations Immunizations are current?: Yes - POLST Patient has POLST: No Results - Vitals Vitals: Oxygen O2 Source Room air
[2019-06-14] MEDS ORDERED: CHERRY SYRUP 10 ML UDC PO ONE (13:25)
[2019-06-14] MEDS ORDERED: DEXAMETHASONE 10 MG/ML VIAL PO STA (13:25)
[2019-06-14] MEDS ORDERED: KETOROLAC 60 MG/2 ML VIAL IM STA (13:25)
[2019-06-14 14:00] VITALS: BP 142/102
== END 2019-06-14 13:59 | disposition home or self-care (01) ==
LOC: ED 11:52
DX: M51.9 Unspecified thoracic, thoracolumbar and lumbosacral intervertebral disc disorder (principal)
CPT/HCPCS: 99282; 99284; A9270

== ENCOUNTER 2019-06-16 07:50 | Outpatient (CLI) | payer OTHER ==
--- NOTE | 2019-06-16 09:43 | MRI Report ---
Reason: LUMBAR INTERVERTEBRAL DISC DISPLACEMNT Procedure Date: 06/16/2019 Accession Number: [id number] / [id number] Procedure: MRI - Lumbar Spine W/O CPT Code: FULL RESULT: MRI LUMBAR SPINE WITHOUT CONTRAST EXAM DATE: 06/16/2019. INDICATION: 43-year-old female with complaints of worsening low back pain over the past month. The pain is worsened with prolonged walking, standing and deep breathing. No improvement with physical therapy and manager respiratory care. Please assess. TECHNIQUE: 1. Sagittal STIR, T1 and T2. 2. Axial T1 and T2. COMPARISON: 03/24/2018. FINDINGS: Radiographs (12/03/2016 have been reviewed, confirming the presence of 5 non-rib bearing, lumbar type vertebrae. The vertebral alignment appears normal. Demonstrated is absence of normal T2 signal from the L4-L5 and L5-S1 disks, confirming disk degeneration. The T9-T10 through L3-L4 disks appear relatively well hydrated. The disk space heights are preserved throughout. An intraosseous hemangioma is again demonstrated in the L4 vertebral body. There is minor, type I reactive marrow change in the inferior endplate of L4, laterally on the left, likely representing reactive edema secondary to degenerative disk disease. This is unchanged or minimally progressed. The marrow signal intensity is otherwise unremarkable. The conus terminates in an appropriate fashion above the L1-L2 disk level. There is no abnormal thickening or lipomatous change of the filum. Axial Images: T12-L1 through L3-L4: No disk herniation. No spinal canal or foraminal stenosis. L4-L5: Interval development of tiny posterocentral protrusion with associated annular fissure. The protrusion is confined to the ventral epidural fat. There is no mass effect on the thecal sac or S1 nerve roots. Again demonstrated is degenerative facet arthrosis with mild to moderate bony hypertrophy, unchanged. There is minimal foraminal narrowing. L5-S1: Again demonstrated is a small central/left paracentral protrusion. An annular fissure is now demonstrated in the disk at this level. The protrusion is confined to the ventral epidural fat. There is no mass effect on the thecal sac or traversing left S1 nerve root. Degenerative facet arthrosis with minimal bony hypertrophy. No foraminal stenosis. The regional paraspinous soft tissues are unremarkable. IMPRESSION: 1. Interval development of small central disk herniation with associated annular fissure at L4-L5. No associated spinal stenosis or neural impingement. 2. Again demonstrated is a small central/left paracentral protrusion at L5-S1, essentially unchanged. There has been interval development of an annular fissure in the disk at this level. Once again there is no spinal stenosis or neural impingement at L5-S1. 3. No other new findings when compared to previous study 03/24/2018.
== END 2019-06-16 07:51 | disposition home or self-care (01) ==
LOC: DI 07:50
PROVIDERS: ATTEND Physical Medicine & Rehabilitation
DX: M51.26 Other intervertebral disc displacement, lumbar region (principal); M51.36 Other intervertebral disc degeneration, lumbar region; M51.27 Other intervertebral disc displacement, lumbosacral region; M47.816 Spondylosis without myelopathy or radiculopathy, lumbar region; M47.817 Spondylosis without myelopathy or radiculopathy, lumbosacral region
CPT/HCPCS: 72148

== ENCOUNTER 2019-09-11 13:16 | Outpatient (CLI) | payer OTHER | END 2019-09-11 13:17 | disposition home or self-care (01) | LOC: DI 13:16 | PROVIDERS: ATTEND Obstetrics & Gynecology | DX: R00.2 Palpitations (principal); I51.7 Cardiomegaly | CPT/HCPCS: 93306 ==

== ENCOUNTER 2019-09-18 10:13 | Outpatient (CLI) | payer OTHER ==
--- NOTE | 2019-09-21 11:39 | Mammography Report ---
Reason: ROUTINE MAMMO Procedure Date: 09/18/2019 Accession Number: [id number] / [id number] Procedure: UTE - Screening Mammo w/Minor CPT Code: Final Report FULL RESULT: EXAM: Screening Mammo w/Minor DATE: 09/18/2019 10:41 AM CLINICAL HISTORY: Routine screening TECHNIQUE: (B) - Bilateral CC and MLO views were obtained. COMPARISON: 01/01/2012 PARENCHYMAL PATTERN: (A) - The breasts demonstrate scattered fibroglandular densities bilaterally. FINDINGS: No significant interval change. There are no suspicious masses, calcifications, or areas of distortion. IMPRESSION: Negative examination. BI-RADS category 1. RECOMMENDATION: (ANNUAL) - Recommend routine annual screening mammography. BI-RADS CATEGORY: (1) - Negative. STANDARD QUALIFYING STATEMENTS: 1. This examination was not reviewed with the aid of Computer-Aided Detection (CAD). 2. A negative or benign imaging report should not preclude biopsy if clinically suspicious findings are present. 3. Dense breasts may obscure an underlying neoplasm. 4. This examination was reviewed with the aid of 3D breast imaging (tomosynthesis).
== END 2019-09-18 10:14 | disposition home or self-care (01) ==
LOC: DI 10:13
PROVIDERS: ATTEND Obstetrics & Gynecology
DX: Z12.31 Encounter for screening mammogram for malignant neoplasm of breast (principal)
CPT/HCPCS: 77063; 77067

== ENCOUNTER 2019-09-22 12:28 | Outpatient (CLI) | payer OTHER ==
[2019-09-22 12:44] LABS: BASOPHILS # (AUTO) 0.1 10^3/uL (0.0-0.1); BASOPHILS % (AUTO) 0.8 %; EOSINOPHILS # (AUTO) 0.3 10^3/uL (0.0-0.7); EOSINOPHILS % (AUTO) 5.5 %; HGB - HEMOGLOBIN 14.3 g/dL (12.0-16.0); LYMPHOCYTES % (AUTO) 32.6 %; MEAN CORPUSCULAR HEMOGLOBIN 28.7 pg (27.0-31.0); MEAN CORPUSCULAR HGB CONC 32.6 g/dL (32.0-36.0); MEAN CORPUSCULAR VOLUME 88.2 fL (81.0-99.0); MEAN PLATELET VOLUME 10.1 fL (7.9-10.8); MONOCYTES # (AUTO) 0.5 10^3/uL (0.0-1.0); MONOCYTES % (AUTO) 7.9 %; NEUTROPHILS # (AUTO) 3.3 10^3/uL (1.5-6.6); PLT - PLATELET COUNT 286 10^3/uL (130-450); RED BLOOD COUNT 4.98 10^6/uL (4.20-5.40); RED CELL DISTRIBUTION WIDTH 12.7 % (12.0-15.0); WHITE BLOOD COUNT 6.2 x10^3/uL (4.8-10.8)
== END 2019-09-22 12:29 | disposition home or self-care (01) ==
LOC: LAB 12:28
PROVIDERS: ATTEND Obstetrics & Gynecology
DX: Z01.818 Encounter for other preprocedural examination (principal); N81.4 Uterovaginal prolapse, unspecified; N81.89 Other female genital prolapse
CPT/HCPCS: 36415; 85025; 93005

== ENCOUNTER 2020-01-22 08:00 | Outpatient (CLI) | payer OTHER ==
[2020-01-22 12:23] LABS: URIC ACID 4.4 mg/dL (2.6-7.2)
[2020-01-22 12:29] LABS: CRP - C-REACTIVE PROTEIN < 1.0 mg/dL (0-1.0)
[2020-01-22 12:40] LABS: RHEUMATOID FACTOR NEGATIVE (Negative)
== END 2020-01-22 08:01 | disposition home or self-care (01) ==
LOC: LAB.WCP 08:00
PROVIDERS: ATTEND Family Medicine
DX: M25.50 Pain in unspecified joint (principal)
CPT/HCPCS: 36415; 84550; 85651; 86038; 86140; 86200; 86430

== ENCOUNTER 2020-05-19 11:08 | Outpatient (CLI) | payer OTHER ==
--- NOTE | 2020-05-19 16:43 | XRAY Report ---
PROCEDURE: Hip w/Pelvis 2-3V RT INDICATIONS: Right hip pain TECHNIQUE: AP pelvis with lateral view(s) of the hip(s). COMPARISON: None. FINDINGS: Bones: Mild bilateral degenerative changes with joint space narrowing and superior acetabular osteop hytosis. No findings of femoral acetabular impingement morphology. No fractures or dislocations. Pel lula ring appears intact. No suspicious bony lesions. Soft tissues: The visualized bowel gas pattern is normal. No suspicious soft tissue calcifications. IMPRESSION: Mild hip osteoarthritic change. Reviewed by: Milan Morse MD on 05/19/2020 4:42 PM PDT Approved by: Milan Morse MD on 05/19/2020 4:42 PM PDT Station ID: [id number]
== END 2020-05-19 11:09 | disposition home or self-care (01) ==
LOC: DI 11:08
PROVIDERS: ATTEND Family Medicine
DX: M16.0 Bilateral primary osteoarthritis of hip (principal)

== ENCOUNTER 2020-10-10 08:00 | Outpatient (CLI) | payer OTHER ==
--- NOTE | 2020-10-10 14:57 | XRAY Report ---
PROCEDURE: Hip w/Pelvis 1V RT INDICATIONS: RIGHT HIP PAIN TECHNIQUE: AP pelvis with lateral view(s) of the bilateral hip(s). COMPARISON: None. FINDINGS: Bones: No fractures or dislocations. Pelvic ring appears intact. No suspicious bony lesions. Mild left hip joint periarticular osteophyte formation. Articular osteophyte formation at the symphysis pubis. Soft tissues: The visualized bowel gas patter n is normal. No suspicious soft tissue calcifications. IMPRESSION: Left hip osteoarthritis. No acute fracture. No osseous lesion. If symptoms and/or clinica l suspicion for pathology continue, further assessment with repeat plain films, or advanced imaging ( e.g., CT, MRI, or bone scan) is recommended for further assessment. Reviewed by: Obed Christie MD on 10/10/2020 2:56 PM PST Approved by: Obed Christie MD on 10/10/2020 2:56 PM PST Station ID: [id number]
== END 2020-10-10 23:59 | disposition home or self-care (01) ==
LOC: DI.N 08:00
PROVIDERS: ATTEND Physician Assistant
DX: M70.61 Trochanteric bursitis, right hip (principal); M16.12 Unilateral primary osteoarthritis, left hip